=== PATIENT | female | born 1990 | race Two or more races ===

== ENCOUNTER 2018-02-28 10:04 | Emergency (ER) | payer MEDICAID ==
[~2018-02-28] VITALS: Ht 165.1 cm; Wt 85.3 kg
[2018-02-28] MEDS ORDERED: PNV1TABL55 PO (10:19)
--- NOTE | 2018-02-28 10:36 | NUR ---
assissted md with examining the pt.
[2018-02-28 10:39] LABS: *BILIRUBIN,URIN NEGATIVE (NEGATIVE); *BLOOD, URINE 3+ (NEGATIVE); *CLARITY,URINE SLIGHTLY CLOUDY (CLEAR); *COLOR,URINE YELLOW (YELLOW); *KETONES,URINE NEGATIVE (NEGATIVE); *PROTEIN,URINE 2+ (NEGATIVE); *UROBILINOGEN,URINE 0.2 E.U./dl (NORMAL); LEUKOCYTE ESTERASE ,URINE TRACE (NEGATIVE); NITRITE, URINE POSITIVE (NEGATIVE); UGLUCOSE NEGATIVE (NEGATIVE)
[2018-02-28 10:44] LABS: BACTERIA,URINE MODERATE /HPF (NONE SEEN); SQUAMOUS EPITHELIAL CELL,UR FEW /HPF (NONE SEEN); WBC,URINE 20-50 /HPF (0-3)
--- NOTE | 2018-02-28 10:49 | NUR ---
Patient discharged to home in stable conditon. Written and verbal after care instructions given. Patient verbalizes understanding of instructions.
== END 2018-02-28 10:52 | disposition home or self-care (01) ==
LOC: ER 10:04
DX: O23.42 Unspecified infection of urinary tract in pregnancy, second trimester (principal); Z88.5 Allergy status to narcotic agent; Z3A.22 22 weeks gestation of pregnancy
CPT/HCPCS: 81001; 87077; 87086; 87186; 99284; A4663